=== PATIENT | female | born 1975 | race American Indian/Alaskan Native ===

== ENCOUNTER 2018-09-15 20:55 | Emergency (ER) | payer BC, OTHER ==
[~2018-09-15] VITALS: Ht 167.6 cm; Wt 122.5 kg
--- OUTSIDE RECORDS SUMMARY | ~2018-09-15 | XMS | Clinical Summary ---
Demographics + + + | Address | [address] | | | [place], [place] [address] | + + + | Home Phone | | + + + | Preferred Language | Unknown | + + + | Marital Status | Unknown | + + + | Congregational Affiliation | Unknown | + + + | Race | Unknown | + + + | Ethnic Group | Unknown | + + + Author + + + | Author | [facility] | + + + | Organization | [facility] | + + + | Address | Unknown | + + + | Phone | Unavailable | + + + Care Team Providers + +------+ + | Care Molecular Spectroscopist Name | Role | Phone | + +------+ + PP | Unavailable | + +------+ + Source Comments HYACINTH is fully live on both [facility] and [facility] InPatient.[facility] Allergies Not on File Current Medications Not on file Active Problems Not on file Social History + +-------+ +--------+------+ | Tobacco Use | Types | Packs/Day | Years | Date | | | | | Used | | + +-------+ +--------+------+ | Never Assessed | | | | | + +-------+ +--------+------+ + + + | Sex Assigned at | Date Recorded | | | | + + + | Not on file | | + + + Plan of Treatment + + + + + | Health Maintenance | Due Date | Last Done | Comments | + + + + + | Influenza (Flu) | | 12/01/2014 | | | vaccination (#1) | 8 | | | + + + + + Results Not on filefrom Last 3 Months"
--- OUTSIDE RECORDS SUMMARY | ~2018-09-15 | XMS | Clinical Summary ---
Demographics + + + | Address | [address] | | | [place] [address] | + + + | Home Phone | | + + + | Preferred Language | Unknown | + + + | Marital Status | Single | + + + | Congregational Affiliation | Unknown | + + + | Race | Unknown | + + + | Ethnic Group | Unknown | + + + Author + + + | Author | [facility] | + + + | Organization | [facility] | + + + | Address | Unknown | + + + | Phone | Unavailable | + + + Support + + +---------+ + | Name | Relationship | Address | Phone | + + +---------+ + | Ariella Storey | ECON | Unknown | | + + +---------+ + Care Team Providers + +------+ + | Care Research Development Director Name | Role | Phone | + +------+ + | Radha Muller PA-C | PP | | + +------+ + Allergies + + + + + + | Active Allergy | Reactions | Severity | Noted | Comments | | | | | Date | | + + + + + + | Erythromycin | Nausea and Vomiting | Low | 11/23/19 | | | | | | 18 | | + + + + + + | Latex | Hives | High | 08/29/20 | | | | | | 16 | | + + + + + + | Lisinopril | Cough | Low | 11/23/19 | | | | | | 18 | | + + + + + + Current Medications + + +---------+---------+------+------+-------+ | Prescription | Sig. | Disp. | Refills | Star | End | Statu | | | | | | t | Date | s | | | | | | Date | | | + + +---------+---------+------+------+-------+ | gabapentin | Take 100 mg by mouth | | | | | Activ | | (NEURONTIN) 100 MG | 3 (three) times | | | | | e | | capsule | daily. | | | | | | + + +---------+---------+------+------+-------+ | Cholecalciferol | Take 1,000 Units by | | | | | Activ | | 1000 units capsule | mouth daily. | | | | | e | + + +---------+---------+------+------+-------+ | metFORMIN | Take 2 tablets by | 60 | 11 | 11/09 | 11/09 | Activ | | (GLUCOPHAGE-XR) 500 | mouth daily with | tablet | | 03/28 | 03/28 | e | | MG 24 hr tablet | dinner. | | | 18 | 19 | | + + +---------+---------+------+------+-------+ | liraglutide | Inject 0.6 mg into | 3 mL | 11 | 11/10 | | Activ | | (VICTOZA) 18 MG/3ML | the skin daily. | | | 20 | | e | | injection | | | | 18 | | | + + +---------+---------+------+------+-------+ | Insulin Pen Needle | 1 each by Does not | 100 | 11 | /2 | | Activ | | (PEN NEEDLES) 31G X | apply route daily. | each | | /20 | | e | | 6 MM MISC | | | | 18 | | | + + +---------+---------+------+------+-------+ | insulin detemir | Inject 70 Units into | 20 mL | 5 | 11/0 | | Activ | | (LEVEMIR) 100 | the skin nightly. | | | 1/20 | | e | | UNIT/ML | | | | 18 | | | | injectionIndications | | | | | | | | : 30 units AM, 40 | | | | | | | | units PM | | | | | | | + + +---------+---------+------+------+-------+ | insulin lispro, | Inject 22 Units into | 20 mL | 5 | 11/0 | 11/0 | Activ | | human, (HUMALOG) 100 | the skin 3 (three) | | | 1/20 | 1/20 | e | | UNIT/ML injection | times daily before | | | 18 | 19 | | | | meals. | | | | | | + + +---------+---------+------+------+-------+ | insulin detemir | Inject 70 Units into | | | | 11/0 | Disco | | (LEVEMIR) 100 | the skin nightly. | | | | 1/20 | ntinu | | UNIT/ML | | | | | 18 | ed | | injectionIndications | | | | | | | | : 30 units AM, 40 | | | | | | | | units PM | | | | | | | + + +---------+---------+------+------+-------+ | insulin aspart | Inject 22 Units into | 20 mL | 12 | 09/0 | 11/0 | Disco | | (NOVOLOG) 100 | the skin 3 (three) | | | 6/20 | 1/20 | ntinu | | UNIT/ML injection | times daily before | | | 18 | 18 | ed | | | meals. | | | | | | + + +---------+---------+------+------+-------+ | insulin glargine | Inject 70 Units into | 30 mL | 12 | 09/0 | 11/0 | Disco | | (BASAGLAR JANETTEPEN) | the skin nightly. | | | 6/20 | 1/20 | ntinu | | 100 UNIT/ML | | | | 18 | 18 | ed | | injection | | | | | | | + + +---------+---------+------+------+-------+ Active Problems No known active problems Encounters +--------+ + + + + | Date | Type | Specialty | Care Team | Description | +--------+ + + + + | 09/07/ | Refill | | Gregg Bernard, | | | 2017 | | | MD | | +--------+ + + + + | 07/15/ | Telephone | | Mercy Lainez, | Other | | 2017 | | | WAREHOUSE STOCKER | | +--------+ + + + + | 06/29/ | Hospital | | See, Medical | Diagnosis unknown | | 2017 | Encounter | | Record | | +--------+ + + + + | 06/29/ | Hospital | | See, Medical | Diagnosis unknown | | 2017 | Encounter | | Record | | +--------+ + + + + | 06/29/ | Procedure | | | | | 2017 | Pass | | | | +--------+ + + + + | 06/29/ | Procedure | | | | | 2017 | Pass | | | | +--------+ + + + + | 06/29/ | Ancillary | | See, Medical | Diagnosis unknown | | 2018 | Orders | | Record | | +--------+ + + + + | 06/28/ | Documentati | | Tito Goldman, | | | 2017 | on Only | | MINE CAPTAIN | | +--------+ + + + + | 06/24/ | Telephone | | Kvaya Che, | | | 2017 | | | GERIATRIC ASSISTANT | | +--------+ + + + + | 06/21/ | Hospital | | Tito Goldman, | Cervicalgia; | | 2018 | Encounter | | MINE CAPTAIN | Numbness and | | | | | | tingling of right | | | | | | arm; Numbness and | | | | | | tingling in left arm | +--------+ + + + + | 06/21/ | Office | | Tito Goldman, | Cervicalgia (Primary | | 2018 | Visit | | MINE CAPTAIN | Dx); Numbness and | | | | | | tingling of right | | | | | | arm; Numbness and | | | | | | tingling in left arm | +--------+ + + + + | 06/21/ | Telephone | | Tito Goldman, | Imaging (pt is | | 2018 | | | MINE CAPTAIN | requesting to speak | | | | | | to the MA, pt has | | | | | | her CT scan and xray | | | | | | info from last time | | | | | | she has them done. | | | | | | ) | +--------+ + + + + | 06/21/ | Orders Only | | Kerrie Rosas, | Johnsongia (Primary | | 2018 | | | WAREHOUSE STOCKER | Dx) | +--------+ + + + + from Last 3 Months Immunizations + + + + | Name | Dates Previously Given | Next Due | + + + + | Hepatitis B | 07/13/2003 | | + + + + | Hepatitis B Adult | 07/13/2003 | | + + + + | Influenza, Trivalent | 12/01/2014 | | | W/Preservative | | | + + + + | Pneumococcal | 08/01/2014 | | | Polysaccharide | | | | 23-valent | | | + + + + Family History + + +------+ + | Medical History | Relation | Name | Comments | + + +------+ + | Diabetes type II | Father | | | + + +------+ + | Diabetes type II | Maternal | | | | | Grandmoth | | | | | er | | | + + +------+ + | Diabetes type II | Mother | | | + + +------+ + | Diabetes type II | Paternal | | | | | Grandfath | | | | | er | | | + + +------+ + + +------+--------+ + | Relation | Name | Status | Comments | + +------+--------+ + | Father | | | | + +------+--------+ + | Maternal Grandmother | | | | + +------+--------+ + | Mother | | | | + +------+--------+ + | Paternal Grandfather | | | | + +------+--------+ + Social History + +-------+ +--------+------+ | Tobacco Use | Types | Packs/Day | Years | Date | | | | | Used | | + +-------+ +--------+------+ | Never Smoker | | | | | + +-------+ +--------+------+ + +---+---+---+ | Smokeless Tobacco: | | | | | Never Used | | | | + +---+---+---+ + + + | Sex Assigned at | Date Recorded | | | | + + + | Not on file | | + + + Last Filed Vital Signs + + + + | Vital Sign | Reading | Time Taken | + + + + | Blood Pressure | 137/95 | 06/21/2018 2:50 PM PDT | + + + + | Pulse | 92 | 06/21/2018 2:50 PM PDT | + + + + | Temperature | - | - | + + + + | Respiratory Rate | - | - | + + + + | Oxygen Saturation | 98% | 11/23/2017 2:33 PM PST | + + + + | Inhaled Oxygen | - | - | | Concentration | | | + + + + | Weight | 117.9 kg (260 lb) | 06/21/2018 2:50 PM PDT | + + + + | Height | 165.1 cm (5' 5") | 06/21/2018 2:50 PM PDT | + + + + | Body Mass Index | 43.27 | 06/21/2018 2:50 PM PDT | + + + + Plan of Treatment + + + + + | Health Maintenance | Due Date | Last Done | Comments | + + + + + | Vaccine: | | | | | Dtap/Tdap/Td (1 - | 5 | | | | Tdap) | | | | + + + + + | Cervical Cancer | | | | | Screening (Pap) | 6 | | | + + + + + | Vaccine: Influenza | | 12/01/2014 | | | (#1) | 8 | | | + + + + + Procedures + +--------+ + + + | Procedure Name | Priori | Date/Time | Associated Diagnosis | Comments | | | ty | | | | + +--------+ + + + | XR CERVICAL SPINE | Routin | 06/21/2018 | Cervicalgia | Results for this | | LIMITED 2-3 VIEW | e | 4:13 PM | Numbness and | procedure are in the | | | | PDT | tingling of right | results section. | | | | | arm Numbness and | | | | | | tingling in left arm | | + +--------+ + + + from Last 3 Months Results X-ray cervical spine limited 2-3 view (06/21/2018 4:13 PM) + + + | Impressions | Performed At | + + + | 1. Mild to moderate multilevel degenerative change of the | [facility] | | cervical spine. Electronically signed by Santy Davila DO on | RADIOLOGY | | 06/21/2018 4:58 PM | | + + + + + + | Narrative | Performed At | + + + | PETER SAGE 1975 42 years Female XR CERVICAL SPINE | [facility] | | LIMITED 2-3 VIEW 06/21/2018 4:13 PM INDICATION: Neck pain | RADIOLOGY | | COMPARISON: None TECHNIQUE: Lateral flexion-extension views of the | | | cervical spine. FINDINGS: Vertebral heights and alignment are | | | maintained. Mild to moderate disc space narrowing with endplate | | | spurring from C4 through T1. Prevertebral soft tissues are | | | unremarkable. Negative for fracture. No evidence for instability on | | | flexion and extension images. | | + + + + + | Procedure Note | + + | Gee Ambrosio Results In - 06/21/2018 5:03 PM PDT PETER SAGE years | | FemaleXR CERVICAL SPINE LIMITED 2-3 VIEW06/21/2018 4:13 PMINDICATION: Neck | | painCOMPARISON: NoneTECHNIQUE: Lateral flexion-extension views of the cervical | | spine.FINDINGS: Vertebral heights and alignment are maintained. Mild to moderate disc | | space narrowing with endplate spurring from C4 through T1. Prevertebral soft tissues are | | unremarkable. Negative for fracture. No evidence for instability on flexion and | | extension images.IMPRESSION:1. Mild to moderate multilevel degenerative change of the | | cervical spine. | |COMPARISON: None | | | |TECHNIQUE: Lateral flexion-extension views of the cervical spine. | | | |FINDINGS: Vertebral heights and alignment are maintained. Mild to moderate disc space narro wing with endplate spurring from C4 through T1. Prevertebral soft tissues are unremarkable. Negative for fracture. No | |evidence for instability on flexion and extension images. | | | |IMPRESSION: | |1. Mild to moderate multilevel degenerative change of the cervical spine. | | | | | + + + + + + + | Performing | Address | City/State/Zipcode | Phone Number | | Organization | | | | + + + + + | [facility] | [address] | [place] [address] | | + + + + + from Last 3 Months Insurance +---------+--------+ +------+-------+ + | Payer | Benefi | Subscriber | Type | Phone | Address | | | t Plan | ID | | | | | | / | | | | | | | Group | | | | | +---------+--------+ +------+-------+ + | PREMERA | PREMER | [id number] | | | [address] | | | [place] | | | | [place] | | | [place] | | | | [phone] | | | FED | | | | | | | PPO | | | | | +---------+--------+ +------+-------+ + + +--------+ +--------+ + + | Guarantor Name | Accoun | Relation to | Date | Phone | Billing Address | | | t Type | Patient | of | | | | | | | | | | + +--------+ +--------+ + + | PETER SAGE | Person | Self | [birth year] | Home: | [address] | | | al/Fam | | [phone] | [phone] [address] [place] | | | [place] | | [phone] | [address] | + +--------+ +--------+ + +
--- OUTSIDE RECORDS SUMMARY | ~2018-09-15 | XMS | Encounter Summary ---
Demographics + + + | Address | [address] | | | [place] [address] | + + + | Home Phone | | + + + | Preferred Language | Unknown | + + + | Marital Status | Single | + + + | Church Affiliation | Unknown | + + + | Race | Unknown | + + + | Ethnic Group | Unknown | + + + Author + + + | Author | [facility] | + + + | Organization | [facility] | + + + | Address | Unknown | + + + | Phone | Unavailable | + + + Support + + +---------+ + | Name | Relationship | Address | Phone | + + +---------+ + | Ariella Storey | ECON | Unknown | | + + +---------+ + Care Team Providers + +------+ + | Care Press Bucker Name | Role | Phone | + +------+ + | Radha Muller PA-C | PCP | | + +------+ + Reason for Visit + + + | Reason | Comments | + + + | Medication Refill | Pen Rx refill request. Also pt only has 3 doses of her insulin | | | left. | + + + Encounter Details +--------+--------+ + + + | Date | Type | Department | Care Team | Description | +--------+--------+ + + + | 09/07/ | Refill | [facility] | Gregg Bernard, | | | 2017 | | [address] | | | | | [address] | [facility], [address] | | | | | [place], [place] | [place] [address] | | | | | [address] | [phone] | | | | | [phone] | | | +--------+--------+ + + + Social History + +-------+ +--------+------+ | [...] on file | | + + + as of this encounter Plan of Treatment Not on fileas of this encounter Visit Diagnoses Not on filein this encounter"
--- OUTSIDE RECORDS SUMMARY | ~2018-09-15 | XMS | Encounter Summary ---
Demographics + + + | Address | [address] | | | [place] [address] | + + + | Home Phone | | + + + | Preferred Language | Unknown | + + + | Marital Status | Single | + + + | Latter-Day Affiliation | Unknown | + + + | Race | Unknown | + + + | Ethnic Group | Unknown | + + + Author + + + | Author | [facility] | + + + | Organization | [facility] | + + + | Address | Unknown | + + + | Phone | Unavailable | + + + Support + + +---------+ + | Name | Relationship | Address | Phone | + + +---------+ + | Ariella Storey | ECON | Unknown | | + + +---------+ + Care Team Providers + +------+ + | Care Glass Block Bender Name | Role | Phone | + +------+ + | Radha Muller PA-C | PCP | | + +------+ + Reason for Visit MRI/CAT Scan (Routine) + +--------+ + + + + | Status | Reason | Specialty | Diagnoses / | Referred By | Referred To | | | | | Procedures | Contact | Contact | + +--------+ + + + + | Pending | | Radiology | Diagnoses | See, | | | Review | | | Diagnosis | Medical | | | | | | unknown | Record [address] | | | | | | Procedures | [place] | | | | | | MRI cervical | avenue | | | | | | spine | [place] | | | | | | without | [address] | | | | | | contrast | Phone: | | | | | | | [phone] | | | | | | | Fax: | | | | | | | [phone] | | + +--------+ + + + + Encounter Details +--------+ + + + + | Date | Type | Department | Care Team | Description | +--------+ + + + + | 06/29/ | Hospital | [facility] | See, Medical | Diagnosis unknown | | 2017 | Encounter | [facility] | Record [address] [place] | | | | | RADIOLOGY [address] | [address] | | | | | [facility] | [place] [address] | | | | | [place] [address] | [phone] | | | | | [phone] | | | +--------+ + + + + Social History + +-------+ [...] + + + as of this encounter Medications at Time of Discharge + + +--------+---------+ + + | Medication | Sig. | Disp. | Refills | Start | End Date | | | | | | Date | | + + +--------+---------+ + + | Cholecalciferol | Take 1,000 Units by | | | | | | 1000 units capsule | mouth daily. | | | | | + + +--------+---------+ + + | gabapentin | Take 100 mg by mouth | | | | | | (NEURONTIN) 100 MG | 3 (three) times | | | | | | capsule | daily. | | | | | + + +--------+---------+ + + | Insulin Pen Needle | 1 each by Does not | 100 | 11 | 12/07/19 | | | (PEN NEEDLES) 31G X | apply route daily. | each | | 18 | | | 6 MM MISC | | | | | | + + +--------+---------+ + + | liraglutide | Inject 0.6 mg into | 3 mL | 11 | 12/07/19 | | | (VICTOZA) 18 MG/3ML | the skin daily. | | | 18 | | | injection | | | | | | + + +--------+---------+ + + | metFORMIN | Take 2 tablets by | 60 | 11 | 11/23/19 | | | (GLUCOPHAGE-XR) 500 | mouth daily with | tablet | | 18 | 9 | | MG 24 hr tablet | dinner. | | | | | + + +--------+---------+ + + | insulin detemir | Inject 70 Units into | | | | | | (LEVEMIR) 100 | the skin nightly. | | | | 8 | | UNIT/ML | | | | | | | injectionIndications | | | | | | | : 30 units AM, 40 | | | | | | | units PM | | | | | | + + +--------+---------+ + + | insulin lispro, | Inject 22 Units into | | | | | | human, (HUMALOG) 100 | the skin 3 (three) | | | | 8 | | UNIT/ML injection | times daily before | | | | | | | meals. | | | | | + + +--------+---------+ + + as of this encounter Plan of Treatment Not on fileas of this encounter Procedures + +--------+ + + + | Procedure Name | Priori | Date/Time | Associated Diagnosis | Comments | | | ty | | | | + +--------+ + + + | MRI CERVICAL SPINE | Routin | 09/19/2016 | Diagnosis unknown | Results for this | | WO CONTRAST | e | 4:02 PM | | procedure are in the | | | | PST | | results section. | + +--------+ + + + in this encounter Results MRI cervical spine without contrast (09/19/2016 4:02 PM) + + + | Narrative | Performed At | + + + | This is a non-reportable procedure without a radiologist report and | [facility] | | is used for image storage only | RADIOLOGY | + + + + + + + + | Performing | Address | City/State/Zipcode | Phone Number | | Organization | | | | + + + + + | [facility] | [address] | [place] [address] | | + + + + + in this encounter Visit Diagnoses + + | Diagnosis | + + | Diagnosis unknown | + + | Other unknown and unspecified cause of morbidity or mortality | + +"
--- OUTSIDE RECORDS SUMMARY | ~2018-09-15 | XMS | Clinical Summary ---
Demographics + + + | Address | [address] | | | [place], [place] [address] | + + + | Home Phone | | + + + | Preferred Language | Unknown | + + + | Marital Status | Unknown | + + + | Church Affiliation | Unknown | + + + | Race | Unknown | + + + | Ethnic Group | Unknown | + + + Author + + + | Author | [facility] | + + + | Organization | [facility] | + + + | Address | Unknown | + + + | Phone | Unavailable | + + + Care Team Providers + +------+ + | Care Kiln Setter Name | Role | Phone | + +------+ + PP | Unavailable | + +------+ + Source Comments HYACINTH is fully live on both [facility] and [facility] InPatient.[facility] Allergies Not on File Current Medications Not [...]
--- OUTSIDE RECORDS SUMMARY | ~2018-09-15 | XMS | Encounter Summary ---
Demographics + + + | Address | [address] | | | [place] [address] | + + + | Home Phone | | + + + | Preferred Language | Unknown | + + + | Marital Status | Single | + + + | Holiness Affiliation | Unknown | + + + | Race | Unknown | + + + | Ethnic Group | Unknown | + + + Author + + + | Author | [facility] | + + + | Organization | [facility] | + + + | Address | Unknown | + + + | Phone | Unavailable | + + + Support + + +---------+ + | Name | Relationship | Address | Phone | + + +---------+ + | Ariella Storey | ECON | Unknown | | + + +---------+ + Care Team Providers + +------+ + | Care Bending Shed Worker Name | Role | Phone | + [...] | | | | | Procedures | [place] | | | | | | MRI cervical | avenue | | | | | | spine | [place] | | | | | | without | [address] | | | | | | contrast | Phone: | | | | | | | [phone] | | | | | | | Fax: | | | | | | | [phone] | | + +--------+ + + + + Encounter Details +--------+ + + + + | Date | Type | Department | Care Team | Description | +--------+ + + + + | 06/29/ | Hospital | [facility] | See, Medical | Diagnosis unknown | | 2017 | Encounter | [facility] | Record [address] [place] | | | | | RADIOLOGY [address] | [address] | | | | | [facility] | [place] [address] | | | | | [place] [address] | [phone] | | | | | [phone] | | | +--------+ + + + [...] [facility] | [address] | [place] [address] | | + + + + + in this encounter Visit Diagnoses + + | Diagnosis | + + | Diagnosis unknown | + + | Other unknown and unspecified cause of morbidity or mortality | + +"
--- OUTSIDE RECORDS SUMMARY | ~2018-09-15 | XMS | Encounter Summary ---
Demographics + + + | Address | [address] | | | [place] [address] | + + + | Home Phone | | + + + | Preferred Language | Unknown | + + + | Marital Status | Single | + + + | Denominational Affiliation | Unknown | + + + | Race | Unknown | + + + | Ethnic Group | Unknown | + + + Author + + + | Author | [facility] | + + + | Organization | [facility] | + + + | Address | Unknown | + + + | Phone | Unavailable | + + + Support + + +---------+ + | Name | Relationship | Address | Phone | + + +---------+ + | Ariella Storey | ECON | Unknown | | + + +---------+ + Care Team Providers + +------+ + | Care Food Selector Name | Role | Phone | + +------+ + | Radha Muller PA-C | PCP | | + +------+ + Reason for Referral Physical Medicine (Routine) + + + + + + + | Status | Reason | Specialty | Diagnoses / | Referred By | Referred To | | | | | Procedures | Contact | Contact | + + + + + + + | Authorized | Specialty | Physical | Diagnoses | Susi, | Therapy, | | | Services | Therapy | Cervicalgia | [facility] | Eastern | | | Required | | | [address] | [address] | | | | | | [address] | Physical | | | | | | [address] | [address] | | | | | | [place], [place] | [address] | | | | | | [address] | [place], | | | | | | Phone: | [place] [address] | | | | | | [phone] | Phone: | | | | | | Fax: | [phone] | | | | | | [phone] | Fax: | | | | | | | [phone] | + + + + + + + Encounter Details +--------+ + + + + | Date | Type | Department | Care Team | Description | +--------+ + + + + | 06/21/ | Orders Only | [facility] | Kerrie Rosas, | Cervicalgia (Primary | | 2018 | [facility] | INVESTIGATIVE RESEARCH SPECIALIST | Dx) | | | | [address] | | | | | | [place] | | | | | | [address] | | | | | | [phone] | | | +--------+ + + + [...] as of this encounter Plan of Treatment + +--------+ + + | Name | Priori | Associated Diagnoses | Order Schedule | | | ty | | | + +--------+ + + | Ambulatory referral to Physical | Routin | Cervicalgia | Ordered: 06/21/2018 | | Therapy, Eval and Treat | e | | | + +--------+ + + as of this encounter Visit Diagnoses + + | Diagnosis | + + | Cervicalgia - Primary | + +"
--- OUTSIDE RECORDS SUMMARY | ~2018-09-15 | XMS | Encounter Summary ---
Demographics + + + | Address | [address] | | | [place] [address] | + + + | Home Phone | | + + + | Preferred Language | Unknown | + + + | Marital Status | Single | + + + | Confucianism Affiliation | Unknown | + + + | Race | Unknown | + + + | Ethnic Group | Unknown | + + + Author + + + | Author | [facility] | + + + | Organization | [facility] | + + + | Address | Unknown | + + + | Phone | Unavailable | + + + Support + + +---------+ + | Name | Relationship | Address | Phone | + + +---------+ + | Ariella Storey | ECON | Unknown | | + + +---------+ + Care Team Providers + +------+ + | Care Blast Furnace Keeper Helper Name | Role | Phone | + +------+ + | Radha Muller PA-C | PCP | | + +------+ + Encounter Details +--------+ + + + + | Date | Type | Department | Care Team | Description | +--------+ + + + + | 06/29/ | Procedure | [facility] | | | | 2017 | Pass | [facility] | | | | | | RADIOLOGY [address] | | | | | | [address] | | | | | | [place] [address] | | | | | | [phone] | | | +--------+ + + + [...]
--- OUTSIDE RECORDS SUMMARY | ~2018-09-15 | XMS | Encounter Summary ---
Demographics + + + | Address | [address] | | | [place] [address] | + + + | Home Phone | | + + + | Preferred Language | Unknown | + + + | Marital Status | Single | + + + | Gnosticist Affiliation | Unknown | + + + | Race | Unknown | + + + | Ethnic Group | Unknown | + + + Author + + + | Author | [facility] | + + + | Organization | [facility] | + + + | Address | Unknown | + + + | Phone | Unavailable | + + + Support + + +---------+ + | Name | Relationship | Address | Phone | + + +---------+ + | Ariella Storey | ECON | Unknown | | + + +---------+ + Care Team Providers + +------+ + | Care Collar Turner Name | Role | Phone | + +------+ + | Radha Muller PA-C | PCP | | + +------+ + Reason for Referral MRI/CAT Scan (Routine) + +--------+ + + [...] | | | | | Procedures | [place] | | | | | | MRI brain | avenue | | | | | | without | [place] | | | | | | contrast | [address] | | | | | | | Phone: | | | | | | | [phone] | | | | | | | Fax: | | | | | | | [phone] | | + +--------+ + + + + MRI/CAT Scan (Routine) + +--------+ + + [...] | | | | | Procedures | [place] | | | | | | MRI cervical | avenue | | | | | | spine | [place] | | | | | | without | [address] | | | | | | contrast | Phone: | | | | | | | [phone] | | | | | | | Fax: | | | | | | | [phone] | | + +--------+ + + + + Encounter Details +--------+ + + + + | Date | Type | Department | Care Team | Description | +--------+ + + + + | 06/29/ | Ancillary | [facility] | See, Medical | Diagnosis unknown | | 2018 | [facility] | [facility] MRI | Record [address] [place] | | | | | [address] [facility] | [address] [place] [address], | | | | | [place] [address] | [place] [address] | | | | | [phone] | [phone] | | | | | | | | +--------+ + + [...] Treatment Not on fileas of this encounter Results MRI brain without contrast (09/19/2016 4:04 PM) + + + | Narrative | Performed At | + + + | This is a non-reportable procedure without a radiologist report and | [facility] | | is used for image storage only | RADIOLOGY | + + + + + + + + | Performing | Address | City/State/Zipcode | Phone Number | | Organization | | | | + + + + + | [facility] | [address] | [place] [address] | | + + + + + MRI cervical spine without contrast (09/19/2016 4:02 PM) + + + | Narrative | Performed At | + + + | This is a non-reportable procedure without a radiologist report and | [facility] | | is used for image storage only | RADIOLOGY | + + + + + + + + | Performing | Address | City/State/Zipcode | Phone Number | | Organization | | | | + + + + + | [facility] | [address] | [place] [address] | | + + + + + in this encounter Visit Diagnoses + + | Diagnosis | + + | Diagnosis unknown | + + | Other unknown and unspecified cause of morbidity or mortality | + +"
--- OUTSIDE RECORDS SUMMARY | ~2018-09-15 | XMS | Encounter Summary ---
Demographics + + + | Address | [address] | | | [place] [address] | + + + | Home Phone | | + + + | Preferred Language | Unknown | + + + | Marital Status | Single | + + + | Yazidi Affiliation | Unknown | + + + | Race | Unknown | + + + | Ethnic Group | Unknown | + + + Author + + + | Author | [facility] | + + + | Organization | [facility] | + + + | Address | Unknown | + + + | Phone | Unavailable | + + + Support + + +---------+ + | Name | Relationship | Address | Phone | + + +---------+ + | Ariella Storey | ECON | Unknown | | + + +---------+ + Care Team Providers + +------+ + | Care Manufacturing Business Analyst Name | Role | Phone | + +------+ + | Radha Muller PA-C | PCP | | + +------+ + Encounter Details +--------+ + + + + | Date | Type | Department | Care Team | Description | +--------+ + + + + | 06/29/ | Procedure | [facility] | | | | 2017 | Pass | [facility] | | | | | | RADIOLOGY [address] | | | | | | [address] | | | | | | [place] [address] | | | | | | [phone] | | | +--------+ + + + [...]
--- OUTSIDE RECORDS SUMMARY | ~2018-09-15 | XMS | Encounter Summary ---
Demographics + + + | Address | [address] | | | [place] [address] | + + + | Home Phone | | + + + | Preferred Language | Unknown | + + + | Marital Status | Single | + + + | Restorationism Affiliation | Unknown | + + + | Race | Unknown | + + + | Ethnic Group | Unknown | + + + Author + + + | Author | [facility] | + + + | Organization | [facility] | + + + | Address | Unknown | + + + | Phone | Unavailable | + + + Support + + +---------+ + | Name | Relationship | Address | Phone | + + +---------+ + | Ariella Storey | ECON | Unknown | | + + +---------+ + Care Team Providers + +------+ + | Care Seed Trucker Name | Role | Phone | + +------+ + | Radha Muller PA-C | PCP | | + +------+ + Encounter Details +--------+ + + + + | Date | Type | Department | Care Team | Description | +--------+ + + + + | 06/28/ | Documentati | [facility] | Tito Goldman, | | | 2018 | on Only | [facility] | GRINDER SETUP OPERATOR [address] | | | | | [address] | [address] [place], | | | | | [place] | [place] [address] | | | | | [address] | [phone] | | | | | [phone] | | | +--------+ + + + [...] + + + as of this encounter Progress Genny Sortodershayla Rut Alexi - 06/28/2018 2:22 PM PDTImaging reportsin this encounter Plan of Treatment Not on fileas of this encounter Visit Diagnoses Not on filein this encounter"
--- OUTSIDE RECORDS SUMMARY | ~2018-09-15 | XMS | Encounter Summary ---
Demographics + + + | Address | [address] | | | [place] [address] | + + + | Home Phone | | + + + | Preferred Language | Unknown | + + + | Marital Status | Single | + + + | Lutheran Affiliation | Unknown | + + + | Race | Unknown | + + + | Ethnic Group | Unknown | + + + Author + + + | Author | [facility] | + + + | Organization | [facility] | + + + | Address | Unknown | + + + | Phone | Unavailable | + + + Support + + +---------+ + | Name | Relationship | Address | Phone | + + +---------+ + | Ariella Storey | ECON | Unknown | | + + +---------+ + Care Team Providers + +------+ + | Care Executive Community Planning Name | Role | Phone | + +------+ + | Radha Muller PA-C | PCP | | + +------+ + Encounter Details +--------+ + + + + | Date | Type | Department | Care Team | Description | +--------+ + + + + | 06/24/ | Telephone | Joanna | Kavya Che, | | | 2017 | | [facility] | DIRECTOR OF PHYSICAL EDUCATION | | | | | [address] | | | | | | [place] | | | | | | [address] | | | | | | [phone] | | | +--------+ + + + [...]
--- OUTSIDE RECORDS SUMMARY | ~2018-09-15 | XMS | Encounter Summary ---
Demographics + + + | Address | [address] | | | [place] [address] | + + + | Home Phone | | + + + | Preferred Language | Unknown | + + + | Marital Status | Single | + + + | Restorationist Affiliation | Unknown | + + + | Race | Unknown | + + + | Ethnic Group | Unknown | + + + Author + + + | Author | [facility] | + + + | Organization | [facility] | + + + | Address | Unknown | + + + | Phone | Unavailable | + + + Support + + +---------+ + | Name | Relationship | Address | Phone | + + +---------+ + | Ariella Storey | ECON | Unknown | | + + +---------+ + Care Team Providers + +------+ + | Care Back End Web Developer Name | Role | Phone | + +------+ + | Radha Muller PA-C | PCP | | + +------+ + Reason for Visit +---------+ + | Reason | Comments | +---------+ + | Imaging | pt is requesting to speak to the [place], pt has her CT scan and xray | | | info from last time she has them done. 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 | | | | | | ) | +--------+ + + + + Social [...]
--- OUTSIDE RECORDS SUMMARY | ~2018-09-15 | XMS | Encounter Summary ---
Demographics + + + | Address | [address] | | | [place] [address] | + + + | Home Phone | | + + + | Preferred Language | Unknown | + + + | Marital Status | Single | + + + | Moravian Affiliation | Unknown | + + + | Race | Unknown | + + + | Ethnic Group | Unknown | + + + Author + + + | Author | [email or web address] | + + + | Organization | [facility] | + + + | Address | Unknown | + + + | Phone | Unavailable | + + + Support + + +---------+ + | Name | Relationship | Address | Phone | + + +---------+ + | Ariella Storey | ECON | Unknown | | + + +---------+ + Care Team Providers + +------+ + | Care Die Designer Apprentice Name | Role | Phone | + +------+ + | Radha Muller PA-C | PCP | | + +------+ + Reason for Visit + + + | Reason | Comments | + + + | Neck Pain | | + + + Consultation (Routine) + +--------+ + + + + | Status | Reason | Specialty | Diagnoses / | Referred By | Referred To | | | | | Procedures | Contact | Contact | + +--------+ + + + + | Authorized | | Neurosurgery | Diagnoses | [facility] | Rosenda Marshall | | | | | Cervicalgia | [facility] | Neurosurgery | | | | | | [address] | [address] | | | | | [address] | [address] | | | | | | [place], | [place] | | | | | | [place] [address] | [place] | | | | | | Phone: | [address] | | | | | | [phone] | Phone: | | | | | | Fax: | [phone] | | | | | | [phone] | Fax: | | | | | | | [phone] | + +--------+ + + + + Encounter Details +--------+---------+ + + + | Date | Type | Department | Care Team | Description | +--------+---------+ + + + | 06/21/ | Office | [facility] | Tito Goldman, | Cervicalgia (Primary | | 2018 | Visit | [facility] | QUALITY FACILITATOR [address] | Dx); Numbness and | | | | [address] | [address] Lopez, | tingling of right | | | | [place] | [place] [address] | arm; Numbness and | | | | [address] | [phone] | tingling in left arm | | | | [phone] | | | +--------+---------+ + + + Social History + +-------+ [...] + + + as of this encounter Last Filed Vital Signs + + + [...] + + + | Oxygen Saturation | - | - | + + + + | Inhaled [...] PM PDT | + + + + in this encounter Instructions Patient Instructions - Kerrie Rosas CMA - [facility]2018 [facility] [address] [place] [address] ls this encounter Progress Notes Tito Goldman ARNP - 06/21/2018 2:40 PM PDTFormatting of this note may be different yessenia m the original. Steve Sage is a 42 y.o. female seen in consultation at the request of Arpita Farfan NP for complaints of pain that is located in the right neck. The patient reports that the pain radiates to the right trapezius and intrascapular region. She has increased pain when looking to the right. Left and right arm will have occasional numbness. Onset of pain was on August 29, 2016. She reports that she was [facility]. She is seeing Neurology for TBI currently. Pain is constant in the neck. Pain has stay ed the same. She rates her pain at its worst a 9/10, at its least a 4/10, on average a 6/1 0 and is currently a 7/10. Pain feels like aching, sharp and tight. walking makes the pain worse. heat and cold makes the pain better. Associated symptoms are numbness, coldness a nd tingling, pins and needles. She can sit, more than 2 hours , stand, 1-2 hours, and walk, 45-60 minutes. Sleep is int errupted by the pain more than three times per night. Conservative treatments tried: Conservative measures tried and worked well are heat/cold therapy, chiropractic treatment, physical therapy and NSAIDs. Medications tried are Gabapentin for neuropathy of the feet. Advil and Naproxen previously used and took the edge off of the pain. She has not had nerve blocks or injections for pain relief. There is no history of cancer, fever, or infection. Bowel and Bladder Changes/Incontinence: no Time lost at work due to pain: no Litigation/Workman's Compensation: no Current smoker? No Past Medical History Diagnosis Date Neuropathy Type 2 diabetes mellitus (HCC) Past Surgical History Procedure Laterality Date APPENDECTOMY SECTION 01/2006 DERMATOLIPECTOMY GALLBLADDER SURGERY HERNIA REPAIR Family History Problem Relation Age of Onset Diabetes type II Mother Diabetes type II Father Diabetes type II Maternal Grandmother Diabetes type II Paternal Grandfather Outpatient Encounter Prescriptions as of 06/21/2018 Medication Sig Dispense Refill gabapentin (NEURONTIN) 100 MG capsule Take 100 mg by mouth 3 (three) times daily. insulin detemir (LEVEMIR) 100 UNIT/ML injection Inject 70 Units into the skin nightly. insulin lispro, human, (HUMALOG) 100 UNIT/ML injection Inject 22 Units into the skin 3 (three) times daily before meals. Insulin Pen Needle (PEN NEEDLES) 31G X 6 MM MISC 1 each by Does not apply route daily. 100 each 11 metFORMIN (GLUCOPHAGE-XR) 500 MG 24 hr tablet Take 2 tablets by mouth daily with dinner . 60 tablet 11 Cholecalciferol 1000 units capsule Take 1,000 Units by mouth daily. liraglutide (VICTOZA) 18 MG/3ML injection Inject 0.6 mg into the skin daily. (Patient n ot taking: Reported on 06/21/2018) 3 mL 11 No facility-administered encounter medications on file as of 06/21/2018. Allergies Allergen Reactions Latex Hives Erythromycin Nausea and Vomiting Lisinopril Cough Social History Social History Marital status: Single Spouse name: N/A Number of children: N/A Years of education: N/A Social History Main Topics Smoking status: Never Smoker Smokeless tobacco: Never Used Alcohol use None Drug use: Unknown Sexual activity: Not Asked Other Topics Concern None Social History Narrative None Family History Problem Relation Age of Onset Diabetes type II Mother Diabetes type II Father Diabetes type II Maternal Grandmother Diabetes type II Paternal Grandfather Review of Systems As per HPI, otherwise a 10 point ROS was performed and was negative Objective: Vitals: 06/21/18 1450 BP: (!) 137/95 Pulse: 92 Body mass index is 43.27 kg/m. BP (!) 137/95 (BP Location: Right upper arm, Patient Position: Sitting) | Pulse 92 | Ht 1 .651 m (5' 5") | Wt 117.9 kg (260 lb) | BMI 43.27 kg/m General: Well developed, obese, in no acute distress. Alert, oriented x4. Head: Normocephalic and atraumatic. Eyes: PERRLA, EOMI; conjunctiva clear. Mouth: No deformity or lesions. Throat pink and moist; No exudates. Neck: No masses, thyromegaly, or abnormal cervical nodes. Lungs: Normal air entry bilaterally. Abdomen: Soft and non-tender without palpable masses. Musculoskeletal: No clubbing, cyanosis or edema noted. Full ROM of extremities; joints non-tender, wit hout swelling or deformity. Upper extremities: Skin and hair growth appear normal. Lower extremities: Skin and hair growth appear normal. Skin: Warm, dry, intact without lesions or rashes. Psych: Alert and cooperative; normal mood and bright affect; normal attention span and concent ration; mood congruent, denies thoughts of self harm. Detailed Neurologic Exam Motor Strength: Right: Shoulder abductor (deltoid): 5/5 Biceps: 5/5 Triceps: 5- /5 Wrist extensors: 5/5 Wrist flexors: 5/5 Interossei: 5/5 Left: Shoulder abductor (deltoid): 5/5 Biceps: 5/5 Triceps: 5- /5 Wrist extensors: 5/5 Wrist flexors: 5/5 Interossei: 5/5 Reflex Exam: Right: Biceps: 2+ Brachioradialis: 2+ Triceps: 1+ Left: Biceps: 2+ Brachioradialis: 2+ Triceps: 1+ STATION/GAIT: Mildly antalgic gait C SPINE: Normal cervical lordosis Alignment normal Palpation over para spinous Processes/Facets: Positive for posterior neck pain with rot ational provocation maneuvers. Range of motion: Flexion 40; Extension 40; Right Rotation 70; Left Rotation 70; Right Lateral Tilt 45; Left Lateral Tilt 45 Axial compression: No pain Spurling sign: Right negative; Left negative Hoffmans: Right negative; Left negative SENSORY: Sensation subjectively intact to light touch/pinprick from C2-S2 dermatomes Imaging: I independently reviewed both the imaging studies and the available radiology repo rts No recent cervical imaging available to review. Assessment and Plan: Visit Diagnoses and Associated Orders: Peter was seen today for neck pain. Cervicalgia - Cancel: Ambulatory referral to Physical Therapy, Eval and Treat - X-ray cervical spine limited 2-3 view; Future Numbness and tingling of right arm - Cancel: Ambulatory referral to Physical Therapy, Eval and Treat - X-ray cervical spine limited 2-3 view; Future Numbness and tingling in left arm - Cancel: Ambulatory referral to Physical Therapy, Eval and Treat - X-ray cervical spine limited 2-3 view; Future We did discuss: - The patient has complaints of pain that is located in the right neck. The patient reports that the pain radiates to the right trapezius and intrascapular region. She has increased pain when looking to the right. Left and right arm will have occasional numbness. Onset of pain was on August 29, 2016. She reports that she was [facility]. She is seeing Neurology for TBI currently. - Spurling sign is negative bilaterally. She does have mild weakness over her bilateral t riceps as well as reduce reflexes over the triceps. - We do not have any current cervical imaging to review at this time. - Order placed for Cervical flexion/extension xray to check for possible cervical instabil ity. - Referral made for physical therapy to work on strengthening of the neck as well as incre asing range of motion. - Follow up to be done in 7-8 weeks to discuss progress with physical therapy as well as c ervical x-ray imaging results. She agreed with the plan and elect to proceed. Please feel free to contact me with any questions. AMI Whitman ARNP has created this entry using [employer] Voice Recognition software and [employer] macros. The entry has been reviewed and there may still exist sound alike word er rors. Note: I spent approximately 40 minutes in [id number] time of which greater than 50% was involved in counseling/coordination of care. in this encounter Plan of Treatment Not on fileas of this encounter Results X-ray cervical spine limited 2-3 view [...] 42 years Female XR CERVICAL SPINE | [facility] | | LIMITED 2-3 VIEW 06/21/2018 4:13 [...] | Procedure Note | + + | Hebert, Rad Results In - 06/21/2018 5:03 PM PDT PETER [id number] years | | FemaleXR CERVICAL SPINE LIMITED [...] + + | Performing | Address | City/State/[facility] | Phone Number | | Organization | | | | + + + + + | [facility] | [address] | [place] [address] | | + + + + + in this encounter Visit Diagnoses + + | Diagnosis | + + | Cervicalgia - Primary | + + | Numbness and tingling of right arm | + + | Disturbance of skin sensation | + + | Numbness and tingling in left arm | + + | Disturbance of skin sensation | + +
--- OUTSIDE RECORDS SUMMARY | ~2018-09-15 | XMS | Encounter Summary ---
Demographics + + + | Address | [address] | | | [place] [address] | + + + | Home Phone | | + + + | Preferred Language | Unknown | + + + | Marital Status | Single | + + + | Samaritan Affiliation | Unknown | + + + | Race | Unknown | + + + | Ethnic Group | Unknown | + + + Author + + + | Author | [facility] | + + + | Organization | [facility] | + + + | Address | Unknown | + + + | Phone | Unavailable | + + + Support + + +---------+ + | Name | Relationship | Address | Phone | + + +---------+ + | Ariella Storey | ECON | Unknown | | + + +---------+ + Care Team Providers + +------+ + | Care Canoe Inspector Final Name | Role | Phone | + [...] + + | 06/21/ | Telephone | [facility] | Tito Goldman, | Imaging (pt is | | 2018 | | [facility] | 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 | [...]
--- OUTSIDE RECORDS SUMMARY | ~2018-09-15 | XMS | Encounter Summary ---
Demographics + + + | Address | [address] | | | [place] [address] | + + + | Home Phone | | + + + | Preferred Language | Unknown | + + + | Marital Status | Single | + + + | Episcopal Affiliation | Unknown | + + + | Race | Unknown | + + + | Ethnic Group | Unknown | + + + Author + + + | Author | [facility] | + + + | Organization | [facility] | + + + | Address | Unknown | + + + | Phone | Unavailable | + + + Support + + +---------+ + | Name | Relationship | Address | Phone | + + +---------+ + | Ariella Storey | ECON | Unknown | | + + +---------+ + Care Team Providers + +------+ + | Care Woolen Suiting Shrinker Name | Role | Phone | + +------+ + | Radha Muller PA-C | PCP | | + +------+ + Encounter Details +--------+ + + + + | Date | Type | Department | Care Team | Description | +--------+ + + + + | 06/21/ | Hospital | [facility] | Tito Goldman, | Cervicalgia; | | 2018 | Encounter | [facility] | PICK UP OPERATOR [address] | Numbness and | | | | Xray [address] | Dr Lopez, | tingling of right | | | | Dr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 Female XR CERVICAL SPINE | [facility] | | LIMITED 2-3 VIEW 06/21/2018 4:13 [...] | + + + + + | [facility] | [address] | [place] [address] | | + + + + + in this encounter Visit Diagnoses + + | Diagnosis | + + | Cervicalgia | + + | Numbness and tingling of right arm | + + | Disturbance of skin sensation | + + | Numbness and tingling in left arm | + + | Disturbance of skin sensation | + + Admitting Diagnoses + + | Diagnosis | + + | Cervicalgia | + + | Numbness and tingling in left arm | + + | Disturbance of skin sensation | + + | Numbness and tingling of right arm | + + | Disturbance of skin sensation | + +"
--- OUTSIDE RECORDS SUMMARY | ~2018-09-15 | XMS | Encounter Summary ---
Demographics + + + | Address | [address] | | | [place] [address] | + + + | Home Phone | | + + + | Preferred Language | Unknown | + + + | Marital Status | Single | + + + | Latter-Day Affiliation | Unknown | + + + | Race | Unknown | + + + | Ethnic Group | Unknown | + + + Author + + + | Author | [employer] | + + + | Organization | [facility] | + + + | Address | Unknown | + + + | Phone | Unavailable | + + + Support + + +---------+ + | Name | Relationship | Address | Phone | + + +---------+ + | Ariella Storey | ECON | Unknown | | + + +---------+ + Care Team Providers + +------+ + | Care Outsole Compressor Name | Role | Phone | + [...] | | | | | Procedures | [place] | | | | | | MRI brain | avenue | | | | | | without | [place] | | | | | | contrast | [address] | | | | | | | Phone: | | | | | | | [phone] | | | | | | | Fax: | | | | | | | [phone] | | + +--------+ + + + + Encounter Details +--------+ + + + + | Date | Type | Department | Care Team | Description | +--------+ + + + + | 06/29/ | Hospital | [facility]YS[facility]IAN | See, Medical | Diagnosis unknown | | 2017 | Encounter | [facility] | Record [address] | | | | | RADIOLOGY [address] | [facility] | | | | | [facility] | [place] [address] | | | | | [place] [address] | [phone] | | | | | [phone] | | | +--------+ + + + [...] + +--------+ + + + | MRI BRAIN WO | Routin | 09/19/2016 | Diagnosis unknown | Results for this | | CONTRAST | e | 4:04 PM | | procedure are in the | | | | PST | | results section. | + +--------+ + + + in this encounter Results MRI brain without contrast (09/19/2016 4:04 PM) + + + | Narrative | Performed At | + + + | This is a non-reportable procedure without a radiologist report and | [facility] | | is used for image storage only | RADIOLOGY | + + + + + + + + | Performing | Address | City/State/Zipcode | Phone Number | | Organization | | | | + + + + + | [facility] | [address] | [place] [address] | | + + + + + in this encounter Visit Diagnoses + + | Diagnosis | + + | Diagnosis unknown | + + | Other unknown and unspecified cause of morbidity or mortality | + +"
--- OUTSIDE RECORDS SUMMARY | ~2018-09-15 | XMS | Encounter Summary ---
Demographics + + + | Address | [address] | | | [place] [address] | + + + | Home Phone | | + + + | Preferred Language | Unknown | + + + | Marital Status | Single | + + + | Yarsanism Affiliation | Unknown | + + + | Race | Unknown | + + + | Ethnic Group | Unknown | + + + Author + + + | Author | [facility] | + + + | Organization | [facility] | + + + | Address | Unknown | + + + | Phone | Unavailable | + + + Support + + +---------+ + | Name | Relationship | Address | Phone | + + +---------+ + | Ariella Storey | ECON | Unknown | | + + +---------+ + Care Team Providers + +------+ + | Care Cold Header Operator Name | Role | Phone | + +------+ + | Radha Muller PA-C | PCP | | + +------+ + Encounter Details +--------+ + + + + | Date | Type | Department | Care Team | Description | +--------+ + + + + | 06/29/ | Procedure | [facility] | | | | 2017 | Pass | [facility] | | | | | | RADIOLOGY [address] | | | | | | [address] | | | | | | [place] [address] | | | | | | [phone] | | | +--------+ + + + [...]
--- OUTSIDE RECORDS SUMMARY | ~2018-09-15 | XMS | Encounter Summary ---
Demographics + + + | Address | [address] | | | [place] [address] | + + + | Home Phone | | + + + | Preferred Language | Unknown | + + + | Marital Status | Single | + + + | Temple Affiliation | Unknown | + + + | Race | Unknown | + + + | Ethnic Group | Unknown | + + + Author + + + | Author | [facility] | + + + | Organization | [facility] | + + + | Address | Unknown | + + + | Phone | Unavailable | + + + Support + + +---------+ + | Name | Relationship | Address | Phone | + + +---------+ + | Ariella Storey | ECON | Unknown | | + + +---------+ + Care Team Providers + +------+ + | Care Marble Supervisor Name | Role | Phone | + [...] + + | 09/07/ | Refill | [facility] | Gregg Bernard, | | | 2017 | | [address] | [address] | | | | | [address] | [facility] [place] [address] | | | | | [place], [place] | [place] [address] | | | | | [address] | [phone] | | | | | [phone] | | | +--------+--------+ + + + [...]
--- OUTSIDE RECORDS SUMMARY | ~2018-09-15 | XMS | Encounter Summary ---
Demographics + + + | Address | [address] | | | [place] [address] | + + + | Home Phone | | + + + | Preferred Language | Unknown | + + + | Marital Status | Single | + + + | Methodist Affiliation | Unknown | + + + | Race | Unknown | + + + | Ethnic Group | Unknown | + + + Author + + + | Author | [facility] [facility] | + + + | Organization | [facility] | + + + | Address | Unknown | + + + | Phone | Unavailable | + + + Support + + +---------+ + | Name | Relationship | Address | Phone | + + +---------+ + | Ariella Storey | ECON | Unknown | | + + +---------+ + Care Team Providers + +------+ + | Care Flower Cheniller Name | Role | Phone | + +------+ + | Radha Muller PA-C | PCP | | + +------+ + Reason for Visit +--------+ + | Reason | Comments | +--------+ + | Other | | +--------+ + Encounter Details +--------+ + + + + | Date | Type | Department | Care Team | Description | +--------+ + + + + | 07/15/ | Telephone | [facility] | Mercy Lainez, | Other | | 2018 | | Endocrinology [address] | [facility] | | | | | [address] | | | | | | [place] | | | | | | [address] | | | | | | [phone] | | | +--------+ + + + [...]
--- OUTSIDE RECORDS SUMMARY | ~2018-09-15 | XMS | Encounter Summary ---
Demographics + + + | Address | [address] | | | [place] [address] | + + + | Home Phone | | + + + | Preferred Language | Unknown | + + + | Marital Status | Single | + + + | Taoism Affiliation | Unknown | + + + | Race | Unknown | + + + | Ethnic Group | Unknown | + + + Author + + + | Author | [facility] [facility] | + + + | Organization | [facility] | + + + | Address | Unknown | + + + | Phone | Unavailable | + + + Support + + +---------+ + | Name | Relationship | Address | Phone | + + +---------+ + | Ariella Storey | ECON | Unknown | | + + +---------+ + Care Team Providers + +------+ + | Care Payroll Examiner Name | Role | Phone | + [...] + + | 07/15/ | Telephone | [facility] | Mercy Lainez, | Other | | 2018 | | Endocrinology [address] | [facility] | | | | | [address] | | | | | | [place] | | | | | | [address] | | | | | | [phone] | | | +--------+ + + + [...]
--- OUTSIDE RECORDS SUMMARY | ~2018-09-15 | XMS | Clinical Summary ---
Demographics + + + | Address | [address] | | | [place] [address] | + + + | Home Phone | | + + + | Preferred Language | Unknown | + + + | Marital Status | Single | + + + | Pentecostal Affiliation | Unknown | + + + | Race | Unknown | + + + | Ethnic Group | Unknown | + + + Author + + + | Author | [facility] | + + + | Organization | [facility] | + + + | Address | Unknown | + + + | Phone | Unavailable | + + + Support + + +---------+ + | Name | Relationship | Address | Phone | + + +---------+ + | Ariella Storey | ECON | Unknown | | + + +---------+ + Care Team Providers + +------+ + | Care Refrigeration Supervisor Name | Role | Phone | [...] Other | | 2017 | | | GARDENING MANAGER | | +--------+ + + + + [...] | 2017 | on Only | | LOADING INSPECTOR | | +--------+ + + + + | 06/24/ | Telephone | | [facility]av[facility], | | | 2017 | | | FEED CRUSHER | | +--------+ + + + + | 06/21/ | Hospital | | Tito Goldman, | Cervicalgia; | | 2018 | Encounter | | LOADING INSPECTOR | Numbness and | | | | | | tingling of right | | | | | | arm; Numbness and | | | | | | tingling in left arm | +--------+ + + + + | 06/21/ | Office | | Tito Goldman, | Cervicalgia (Primary | | 2018 | Visit | | LOADING INSPECTOR | Dx); Numbness and | | | | | | tingling of right | | | | | | arm; Numbness and | | | | | | tingling in left arm | +--------+ + + + + | 06/21/ | Telephone | | Tito Goldman, | Imaging (pt is | | 2018 | | | LOADING INSPECTOR | requesting to speak | | | [...] (Primary | | 2018 | | | GARDENING MANAGER | Dx) | +--------+ + + + [...] [facility] | [address] | [place] [address] | | + + + + + from Last 3 Months Insurance +---------+--------+ +------+-------+ + | Payer | Benefi | Subscriber | Type | Phone | Address | | | t Plan | ID | | | | | | / | | | | | | | Group | | | | | +---------+--------+ +------+-------+ + | PREMERA | PREMER | [id number] | | | [address] [address] | | | [place] | | | | [place] | | | [place] | | | | [address] | | | FED | | | [...] | bunny | | | [phone] | [address] | + +--------+ +--------+ + +
--- OUTSIDE RECORDS SUMMARY | ~2018-09-15 | XMS | Encounter Summary ---
Demographics + + + | Address | [address] | | | [place] [address] | + + + | Home Phone | | + + + | Preferred Language | Unknown | + + + | Marital Status | Single | + + + | Restoration Affiliation | Unknown | + + + | Race | Unknown | + + + | Ethnic Group | Unknown | + + + Author + + + | Author | [facility] | + + + | Organization | [facility] | + + + | Address | Unknown | + + + | Phone | Unavailable | + + + Support + + +---------+ + | Name | Relationship | Address | Phone | + + +---------+ + | Ariella Storey | ECON | Unknown | | + + +---------+ + Care Team Providers + +------+ + | Care Tectonophysicist Name | Role | Phone | + [...] | | | | | Procedures | [address] | | | | | | MRI brain | avenue | | | | | | without | [place] | | | | | | contrast | [address] | | | | | | | Phone: | | | | | | | [phone] | | | | | | | Fax: | | | | | | | [phone] | | + +--------+ + + + [...] | | | | | Procedures | [address] | | | | | | MRI cervical | avenue | | | | | | spine | [place] | | | | | | without | [address] | | | | | | contrast | Phone: | | | | | | | [phone] | | | | | | | Fax: | | | | | | | [phone] | | + +--------+ + + + + Encounter Details +--------+ + + + + | Date | Type | Department | Care Team | Description | +--------+ + + + + | 06/29/ | Ancillary | [facility] | See, Medical | Diagnosis unknown | | 2018 | [facility] | [facility] | Record [address] | | | | | [address] [facility] | [address] [place] [address], | | | | | [place] [address] | [place] [address] | | | | | [phone] | [phone] | | | | | | | [...] [facility] | [address] | [place] [address] | | + + + + + [...] | + + + + + | [facility] | [address] | [place] [address] | | + + + + + in this encounter Visit Diagnoses + + | Diagnosis | + + | Diagnosis unknown | + + | Other unknown and unspecified cause of morbidity or mortality | + +"
--- OUTSIDE RECORDS SUMMARY | ~2018-09-15 | XMS | Encounter Summary ---
Demographics + + + | Address | [address] | | | [place] [address] | + + + | Home Phone | | + + + | Preferred Language | Unknown | + + + | Marital Status | Single | + + + | Yazidism Affiliation | Unknown | + + + | Race | Unknown | + + + | Ethnic Group | Unknown | + + + Author + + + | Author | [facility] | + + + | Organization | [facility] | + + + | Address | Unknown | + + + | Phone | Unavailable | + + + Support + + +---------+ + | Name | Relationship | Address | Phone | + + +---------+ + | Ariella Storey | ECON | Unknown | | + + +---------+ + Care Team Providers + +------+ + | Care Keymodule Assembly Machine Tender Name | Role | Phone | + +------+ + | Radha Muller PA-C | PCP | | + +------+ + Encounter Details +--------+ + + + + | Date | Type | Department | Care Team | Description | +--------+ + + + + | 06/21/ | Hospital | [facility] | Tito Goldman, | Cervicalgia; | | 2018 | Encounter | [facility] | SENIOR CLERK [address] | Numbness and | | | | Xray [address] | Dr Lopez, | tingling of right | | | | Dr[address] | [place] [address] | arm; Numbness and | | | | [place] [address] | [phone] | tingling in left arm | | | | [phone] | | | +--------+ + + + [...] 42 years Female XR CERVICAL SPINE | [facility] | | LIMITED 2-3 VIEW 06/21/2018 4:13 [...] | + + + + + | [facility] | [address] [facility] | [place] [address] | | + + + + + [...]
--- OUTSIDE RECORDS SUMMARY | ~2018-09-15 | XMS | Encounter Summary ---
Demographics + + + | Address | [address] | | | [place] [address] | + + + | Home Phone | | + + + | Preferred Language | Unknown | + + + | Marital Status | Single | + + + | Evangelical Affiliation | Unknown | + + + | Race | Unknown | + + + | Ethnic Group | Unknown | + + + Author + + + | Author | [facility] | + + + | Organization | [facility] | + + + | Address | Unknown | + + + | Phone | Unavailable | + + + Support + + +---------+ + | Name | Relationship | Address | Phone | + + +---------+ + | Ariella Storey | ECON | Unknown | | + + +---------+ + Care Team Providers + +------+ + | Care Nibbler Operator Name | Role | Phone | + +------+ + | Radha Muller PA-C | PCP | | + +------+ + Encounter Details +--------+ + + + + | Date | Type | Department | Care Team | Description | +--------+ + + + + | 06/24/ | Telephone | [facility] | Kavya Che, | | | 2017 | | [facility] | NETWORK INTERN | | | | | [address] | | | | | | [place] | | | | | | [address] | | | | | | [phone] | | | +--------+ + + + [...]
--- OUTSIDE RECORDS SUMMARY | ~2018-09-15 | XMS | Encounter Summary ---
Demographics + + + | Address | [address] | | | [place] [address] | + + + | Home Phone | | + + + | Preferred Language | Unknown | + + + | Marital Status | Single | + + + | Shinto Affiliation | Unknown | + + + | Race | Unknown | + + + | Ethnic Group | Unknown | + + + Author + + + | Author | [email or web address] | + + + | Organization | [facility] [employer] [facility] | + + + | Address | Unknown | + + + | Phone | Unavailable | + + + Support + + +---------+ + | Name | Relationship | Address | Phone | + + +---------+ + | Ariella Storey | ECON | Unknown | | + + +---------+ + Care Team Providers + +------+ + | Care Planning Coordinator Name | Role | Phone | + [...] | on Only | [facility] | [address] STEW[address] | | | | | [address] | [address], | | | | | [place] | [place] [address] | | | | | [address] | [phone] | | | | | [phone] | | | +--------+ + + + [...]
--- OUTSIDE RECORDS SUMMARY | ~2018-09-15 | XMS | Encounter Summary ---
Demographics + + + | Address | [address] | | | [place] [address] | + + + | Home Phone | | + + + | Preferred Language | Unknown | + + + | Marital Status | Single | + + + | Spiritism Affiliation | Unknown | + + + | Race | Unknown | + + + | Ethnic Group | Unknown | + + + Author + + + | Author | [facility] | + + + | Organization | [facility] | + + + | Address | Unknown | + + + | Phone | Unavailable | + + + Support + + +---------+ + | Name | Relationship | Address | Phone | + + +---------+ + | Ariella Storey | ECON | Unknown | | + + +---------+ + Care Team Providers + +------+ + | Care Birth Certificate Clerk Name | Role | Phone | + +------+ + | Radha Muller PA-C | PCP | | + +------+ + Encounter Details +--------+ + + + + | Date | Type | Department | Care Team | Description | +--------+ + + + + | 06/29/ | Procedure | [facility] | | | | 2017 | Pass | [facility] | | | | | | RADIOLOGY [address] | | | | | | [address] | | | | | | [place] [address] | | | | | | [phone] | | | +--------+ + + + [...]
--- OUTSIDE RECORDS SUMMARY | ~2018-09-15 | XMS | Encounter Summary ---
Demographics + + + | Address | [address] | | | [place] [address] | + + + | Home Phone | | + + + | Preferred Language | Unknown | + + + | Marital Status | Single | + + + | Orthodoxy Affiliation | Unknown | + + + | Race | Unknown | + + + | Ethnic Group | Unknown | + + + Author + + + | Author | [facility] | + + + | Organization | [facility] | + + + | Address | Unknown | + + + | Phone | Unavailable | + + + Support + + +---------+ + | Name | Relationship | Address | Phone | + + +---------+ + | Ariella Storey | ECON | Unknown | | + + +---------+ + Care Team Providers + +------+ + | Care Yard Person Name | Role | Phone | + [...] [address] | | | | | | [place], [place] | [address] | | | | | | [address] | [place], | | | | | | Phone: | [place] [address] | | | | | | [phone] | Phone: | | | | | | Fax: | [phone] | | | | | | [phone] | Fax: | | | | | | | [phone] | + + + + + + + Encounter Details +--------+ + + + + | Date | Type | Department | Care Team | Description | +--------+ + + + + | 06/21/ | Orders Only | [facility] | Kerrie Rosas, | Cervicalgia (Primary | | 2018 | | [facility] | DIRECTOR OF MANUFACTURING OPERATIONS | Dx) | | | | [address] | | | | | | [place] | | | | | | [address] | | | | | | [phone] | | | +--------+ + + + [...]
--- OUTSIDE RECORDS SUMMARY | ~2018-09-15 | XMS | Encounter Summary ---
Demographics + + + | Address | [address] | | | [place] [address] | + + + | Home Phone | | + + + | Preferred Language | Unknown | + + + | Marital Status | Single | + + + | Buddhism Affiliation | Unknown | + + + | Race | Unknown | + + + | Ethnic Group | Unknown | + + + Author + + + | Author | [facility] | + + + | Organization | [facility] | + + + | Address | Unknown | + + + | Phone | Unavailable | + + + Support + + +---------+ + | Name | Relationship | Address | Phone | + + +---------+ + | Ariella Storey | ECON | Unknown | | + + +---------+ + Care Team Providers + +------+ + | Care Artist'S Model Name | Role | Phone | + [...] | | | | | Procedures | [place] | | | | | | MRI brain | avenue | | | | | | without | [place] | | | | | | contrast | [address] | | | | | | | Phone: | | | | | | | [phone] | | | | | | | Fax: | | | | | | | [phone] | | + +--------+ + + + + Encounter Details +--------+ + + + + | Date | Type | Department | Care Team | Description | +--------+ + + + + | 06/29/ | Hospital | [facility] | See, Medical | Diagnosis unknown | | 2017 | Encounter | [facility] | Record [address] [place] | | | | | RADIOLOGY [address] | [facility] | | | | | [facility] | [place] [address] | | | | | [place] [address] | [phone] | | | | | [phone] | | | +--------+ + + + [...] [facility] | [address] | [place] [address] | | + + + + + in this encounter Visit Diagnoses + + | Diagnosis | + + | Diagnosis unknown | + + | Other unknown and unspecified cause of morbidity or mortality | + +"
--- OUTSIDE RECORDS SUMMARY | ~2018-09-15 | XMS | Encounter Summary ---
Demographics + + + | Address | [address] | | | [place] [address] | + + + | Home Phone | | + + + | Preferred Language | Unknown | + + + | Marital Status | Single | + + + | Baptism Affiliation | Unknown | + + + | Race | Unknown | + + + | Ethnic Group | Unknown | + + + Author + + + | Author | [facility] | + + + | Organization | [facility] | + + + | Address | Unknown | + + + | Phone | Unavailable | + + + Support + + +---------+ + | Name | Relationship | Address | Phone | + + +---------+ + | Ariella Storey | ECON | Unknown | | + + +---------+ + Care Team Providers + +------+ + | Care Base Brander Name | Role | Phone | + [...] | | | | | | [place] [address] | [place] | | | | | | Phone: | [address] | | | | | | [phone] | Phone: | | | | | | Fax: | [phone] | | | | | | [phone] | Fax: | | | | | | | [phone] | + +--------+ + + + + Encounter Details +--------+---------+ + + + | Date | Type | Department | Care Team | Description | +--------+---------+ + + + | 06/21/ | Office | [facility] | Tito Goldman, | Cervicalgia (Primary | | 2018 | Visit | [facility] | DYNO TECHNICIAN [address] | Dx); Numbness and | | | | [address] | [address], | tingling of right | | | | [place] | [place] [address] | arm; Numbness and | | | | [address] | [phone] | tingling in left arm | | | | [phone] | | | +--------+---------+ + + + [...] Rosas CMA - 06/21/2018 2:40 PM [facility] [address] [place] [address] cm this encounter Progress Notes Tito Goldman ARNP - 06/21/2018 2:40 PM PDTFormatting of this note may be different yessenia m the original. Setve Sage is a 42 y.o. female seen [...] Whitman ARNP has created this entry using [employer]ar Voice Recognition software and WSO2 macros. The entry has been reviewed and there may still exist sound alike word er rors. Note: I spent approximately 40 minutes in klyz-en-soyq time of which greater than 50% was [...] In - 06/21/2018 5:03 PM PDT PETER [id number] years | | FemaleXR CERVICAL SPINE LIMITED [...] + + | Performing | Address | City/State/[place] [facility] | Phone Number | | Organization | | | | + + + + + | [facility] | [address] | [place] [address] | | + + + + + [...]
[2018-09-15] MEDS ORDERED: HUMALOG100 UNIT/2 SUB-Q (21:10)
[2018-09-15] MEDS ORDERED: GABAPENTIN100 MG PO (21:10)
[2018-09-15] MEDS ORDERED: GLIPIZIDE ER2.5 MG PO (21:10)
[2018-09-15] MEDS ORDERED: LANTUS SOL100 UNIT/1 SUB-Q (21:10)
[2018-09-15] MEDS ORDERED: BENZONATATE100 MG PO (21:11)
[2018-09-15] MEDS ORDERED: LOSARTAN POTASS25 MG PO (21:11)
--- NOTE | 2018-09-15 21:17 | EKG ---
[facility] [address] [facility] [place] [address] Signed Normal sinus rhythm Moderate voltage criteria for LVH, may be normal variant Borderline ECG No previous ECGs available Confirmed by DEVEN GONZALES MD ([id number]) on 09/15/2018 9:17:23 PM Electronically Signed By: DEVEN GONZALES MD 09/15/18 2117 PATIENT NAME: RANI SAGE Electrocardiogram DATE OF : 77 PHYSICIAN: DEVEN GONZALES MD REPORT #: [id number] REPORT IS CONFIDENTIAL AND NOT TO BE RELEASED WITHOUT AUTHORIZATION
== END 2018-09-15 22:55 | disposition home or self-care (01) ==
LOC: ED 20:55
DX: R07.89 Other chest pain (principal); R00.2 Palpitations; I10 Essential (primary) hypertension; E11.9 Type 2 diabetes mellitus without complications; E78.00 Pure hypercholesterolemia, unspecified; Z91.040 Latex allergy status; Z79.4 Long term (current) use of insulin
CPT/HCPCS: 71045; 80053; 84484; 85025; 85379; 93005; 93010; 99285

== ENCOUNTER 2024-07-28 12:57 | Emergency (ER) | payer OTHER ==
[~2024-07-28] VITALS: Ht 165.1 cm; Wt 108.1 kg
[~2024-07-28 12:57] MED LIST: ATORVASTATIN CA10 MG PO; BENZONATATE100 MG PO; DICLOFENAC SODI50 MG PO; FENOFIBRATE145 MG PO; GABAPENTIN100 MG PO; GLIPIZIDE ER2.5 MG PO; HUMALOG100 UNIT/2 SUB-Q; HUMALOG100 UNITS/; LANTUS SOL100 UNIT/1 SUB-Q; LOSARTAN POTASS25 MG PO; METOPROLOL TAR100 MG PO
[2024-07-28] MEDS ORDERED: BASAGLAR K100 UNIT/1 SQ (13:23)
[2024-07-28] MEDS ORDERED: DICLOFENAC SODI75 MG PO (13:24)
[2024-07-28] MEDS ORDERED: PREGABALIN100 MG PO (13:24)
[2024-07-28 13:44] LABS: BASOPHILS 0.2 % (0-2); EOSINOPHILS 0.5 % (0-6); HEMATOCRIT 39.8 % (35.0-50.0); HEMOGLOBIN 13.5 g/dL (12.0-18.0); LYMPHOCYTES 10.2 % (24-44); MCH 27.3 (27-36); MCV 80.4 fl (81-99); MONOCYTES 2.6 % (0-12); NEUTROPHILS 86.5 % (39-80); PLATELET COUNT 185 K/uL (140-440); RBC 4.94 M/ul (4.3-5.7); RDW 13.8 (10.5-15.0)
[2024-07-28] MEDS ORDERED: KETOROLAC TROMETHAMINE 30 MG/ML VIAL IV ONE (14:00)
[2024-07-28] MEDS ORDERED: ondansetron HCL 4 MG/2 ML VIAL IV ONE (14:00)
[2024-07-28 14:03] LABS: ALBUMIN 3.7 g/dL (3.4-5.0); ALBUMIN/GLOBULIN RATIO 0.95 (1.1-2.4); ANION GAP 12.7 (7-21); BILIRUBIN, TOTAL 0.6 ng/dL (0.2-1.0); BUN/CREATININE RATIO 18.3 (6.0-28.6); CALCIUM 9.2 mg/dL (8.5-10.1); CREATININE, SERUM 0.71 mg/dL (0.55-1.02); POTASSIUM 3.7 mmol/L (3.5-5.1); PROTEIN, TOTAL 7.6 g/dL (6.4-8.2)
[2024-07-28 14:10] LABS: BILIRUBIN, URINE NEGATIVE (negative); BLOOD/HGB, URINE LARGE (Negative); KETONE, URINE SMALL (Negative); LEUK ESTERASE, URINE NEGATIVE (negative); NITRITE, URINE NEGATIVE (negative)
[2024-07-28 14:17] LABS: BACTERIA, URINE NONE SEEN /hpf (negative); CASTS, URINE NONE SEEN \\lpf; COLLECTION TYPE, URINE CLEAN CATCH; CRYSTALS, URINE NONE SEEN (0-1+); EPITHELIAL CELLS, URINE 0 /lpf (0-1+); RED BLOOD CELLS, URINE >50 /hpf (0-5); REFLEX CULTURE, URINE No (No)
[2024-07-28] MEDS ORDERED: PYRIDIUM200 MG PO (16:25)
[2024-07-28] MEDS ORDERED: KETOROLAC TROME10 MG PO (16:25)
[2024-07-28] MEDS ORDERED: ONDANSETRON ODT8 MG PO (16:25)
[2024-07-28 16:35] VITALS: BP 122/66
== END 2024-07-28 16:35 | disposition home or self-care (01) ==
LOC: ED 12:57
PROVIDERS: Emergency Medicine
DX: N13.2 Hydronephrosis with renal and ureteral calculous obstruction (principal); E78.00 Pure hypercholesterolemia, unspecified; I10 Essential (primary) hypertension; E11.9 Type 2 diabetes mellitus without complications; Z79.899 Other long term (current) drug therapy; Z91.040 Latex allergy status; Z88.1 Allergy status to other antibiotic agents; Z88.8 Allergy status to other drugs, medicaments and biological substances
CPT/HCPCS: 36415; 74176; 80053; 81001; 83690; 84703; 85025; 96374; 96375; 99284-25; J1885; J2405